=== PATIENT | female | born 1990 | race Caucasian/White ===

== ENCOUNTER → 2017-07-16 00:45 | Observation (INO) ==
[2017-07-15 23:01] VITALS: BP 125/90
[2017-07-15 23:52] LABS: Amphetamine Screen,Urine Negative ng/mL (Cutoff=1000); Barbiturate Screen,Urine Negative ng/mL (Cutoff=200); Benzodiazepines Screen,Urine Negative ng/mL (Cutoff=200); Cannabinoid Screen,Urine Negative ng/mL (Cutoff = 50); Cocaine Screen,Urine Negative ng/mL (Cutoff= 300); Opiate Screen,Urine Negative ng/mL (Cutoff=300); Phencyclidine Screen,Urine Negative ng/mL (Cutoff=25)
--- NOTE | 2017-07-16 00:27 | Discharge Summary ---
Date of Encounter: 07/16/17 Time of Encounter: 00:29 - Discharge Diagnosis (1) 38 weeks gestation of Priority: Primary Status: Acute Comments: admit for observation rule out labor (2) Uterine contractions Priority: Secondary Status: Acute Comments: No cervical change false labor - Discharge Medications Home Medications: Phenazopyridine HCl [Pyridium] 200 mg PO TID #6 tab 03/10/16 [Rx] Sulfamethoxazole/Trimeth DS [Bactrim DS] 1 each PO BID #14 tablet 03/10/16 [Rx] Ibuprofen [Motrin] 600 mg PO Q8HR PRN #20 tab 03/12/16 [Rx] Penicillin VK 500 mg PO QID #40 tablet 03/12/16 [Rx] Allergies/Adverse Reactions: 3 Allergy/AdvReac Type Severity Reaction Status Date / Time No Known Allergies Allergy Verified 03/10/16 18:36 Data Procedures and tests throughout hospitalization: Laboratory Tests 07/15/17 23:28 Urine Opiates Screen Negative Ur Barbiturates Screen Negative Ur Phencyclidine Scrn Negative Ur Amphetamines Screen Negative U Benzodiazepines Scrn Negative Urine Cocaine Screen Negative U Marijuana (THC) Screen Negative Labs on day of discharge: Labs from last 24 hours 07/15/17 23:28 Urine Opiates Screen Negative Ur Barbiturates Screen Negative Ur Phencyclidine Scrn Negative Ur Amphetamines Screen Negative U Benzodiazepines Scrn Negative Urine Cocaine Screen Negative U Marijuana (THC) Screen Negative Date of admission: 07/15/17 22:41 Discharging clinician: Leighann Beach Anticipated date of discharge: 07/16/17 - Patient Status Disposition: Home, Self-Care Condition: Good Functional capacity at discharge: independent ambulation - Discharge Instructions Follow Up With: Madison Yin DO [Partnered Physician] - - Diet and Activity Activity: increase activity as tolerated Diet: regular diet Hospital Course FIELD SALES SPECIALIST Hospital course: Patient is 26 y/o at 38 weeks gestation presents to labor and delivery with complaints of contractions for the past 3 hours that were 5-7 min apart. Patient denies LOF or VB. Patient reports +FM. Patient is scheduled for repeat c /s on 07/18/2017 Time Attestation: Total time spent providing and/or coordinating discharge services: Time Spent: Less than 30 minutes Exam - Constitutional Vitals: Temp Pulse Resp BP 97.6 F 110 16 125/90 07/15/17 23:00 07/15/17 23:00 07/15/17 23:00 07/15/17 23:00 General appearance IM: A&O X 3, pleasant, answers questions appropriately - Neurological Exam Neurological exam: alert, oriented X3 - Other Additional findings: FHR 140 bpm moderate variability. SVE Closed/thick - VTE Reasons for not Prescribing Prophylaxis: Treatment not Indicated - Low risk for VTE
== END | disposition home or self-care (01) ==
LOC: 1NENULAB
PROVIDERS: ADMIT Obstetrics & Gynecology; ATTEND Obstetrics & Gynecology

== ENCOUNTER 2017-07-18 07:45 | Inpatient (IN) ==
[2017-07-18] MEDS ORDERED: Lidocaine -MPF 1% 2 ML VIAL ONE (10:28)
[2017-07-18] MEDS ORDERED: Ringers Solution, Lactated 1,000 ML ONE ×3 (10:29→12:16)
[2017-07-18] MEDS ORDERED: Ringers Solution, Lactated 1,000 ML IVC ONE (10:29)
[2017-07-18] MEDS ORDERED: CeFAZolin Premix DUPLEX 2,000 MG/50 ML BAG IVPB ONE (10:29)
[2017-07-18] MEDS ORDERED: Ringers Solution, Lactated 1,000 ML IVC SCH (10:30)
[2017-07-18] MEDS ORDERED: *HR* Morphine Sulfate/PF 5 MG/10 ML AMPUL ONE (10:34)
[2017-07-18] MEDS ORDERED: *HR* FentaNYL (PF) 100 MCG/2 ML VIAL ONE (10:35)
[2017-07-18] MEDS ORDERED: *HR* Phenylephrine 10 MG/ML VIAL ONE (10:35)
[2017-07-18] MEDS ORDERED: EPHEDrine 50 MG/ML VIAL ONE (10:35)
[2017-07-18] MEDS ORDERED: Ondansetron 4 MG/2 ML VIAL ONE (10:37)
[2017-07-18] MEDS ORDERED: *HR* Oxytocin 10 UNIT/ML VIAL IM ONE (10:37)
[2017-07-18] MEDS ORDERED: Naloxone 0.4 MG/ML INJ IVP PRN (10:53)
[2017-07-18] MEDS ORDERED: Metoclopramide 10 MG/2 ML VIAL IVP PRN ×2 (10:53→15:53)
[2017-07-18] MEDS ORDERED: Famotidine 20 MG/2 ML VIAL IVP PRN (10:53)
[2017-07-18 11:04] LABS: Basophils # 0.1 K/mcL (0.0-0.2); Basophils % 0.6 %; Eosinophils # 0.1 K/mcL (0.0-0.6); Eosinophils % 1.1 %; Hematocrit 33.6 % (35.3-44.9); Hemoglobin 11.2 g/dL (11.5-15.4); Immature Granulocytes % 1.1 % (0-4); Lymphocytes # 1.6 K/mcL (0.6-4.6); Lymphocytes % 19.9 %; Mean Corpuscular HGB Conc 33.3 g/dL (31.6-35.5); Mean Corpuscular Hemoglobin 28.1 pg (28.0-33.3); Mean Corpuscular Volume 84.4 fL (83.0-100.0); Mean Platelet Volume 9.9 fL (9.4-12.4); Monocytes # 0.8 K/mcL (0.0-1.3); Monocytes % 9.5 %; Neutrophils # 5.6 K/mcL (1.6-8.9); Platelet Count 227 K/mcL (140-400); Red Blood Count 3.98 M/mcL (3.82-4.97); Red Cell Distribution Width 14.1 % (11.5-14.5); Segmented Neutrophils % 67.8 %
[2017-07-18 11:11] LABS: Amphetamine Screen,Urine Negative ng/mL (Cutoff=1000); Barbiturate Screen,Urine Negative ng/mL (Cutoff=200); Benzodiazepines Screen,Urine Negative ng/mL (Cutoff=200); Cannabinoid Screen,Urine Negative ng/mL (Cutoff = 50); Cocaine Screen,Urine Negative ng/mL (Cutoff= 300); Opiate Screen,Urine Negative ng/mL (Cutoff=300); Phencyclidine Screen,Urine Negative ng/mL (Cutoff=25)
--- NOTE | 2017-07-18 11:12 | Anesthesia Evaluation PreOp ---
Date of Encounter: 07/18/17 Time of Encounter: 11:10 - Past History Planned Operation: Repeat C/S Cardiac History: Denies any Significant Hx Pulmonary History: Denies Any Significant HX SUPPLIER RELATIONSHIP DIRECTOR History: Denies Any Significant HX Other Medical History: Denies Any Significant HX Anesthesia History: No Prior Anesthetic Complications, Past Anesthesia (T/A, C/S ) : Yes Alcohol Use: occasionally Drug use: none Medications and Allergies 3 Allergy/AdvReac Type Severity Reaction Status Date / Time No Known Allergies Allergy Verified 03/10/16 18:36 - Meds/Allergy Pre-op Review Medications Reviewed: Yes Allergies Reviewed: Yes Beta Blockers on Current Med List: No Anesthesia Results - Labs 07/18/17 10:50 Anesthesia Exam Height: 5'2" Weight: 87kg NPO (# of Hours): 8 Pain Scale: 0 Pain Scale Used: Numeric (1 - 10) - HEENT Pupil (Motor): Pupils equal Mallampati: II Teeth: Normal Oral Opening: Greater than 3 - SUPPLIER RELATIONSHIP DIRECTOR LOC: Oriented SUPPLIER RELATIONSHIP DIRECTOR Motor: Normal RUE, Normal LUE, Normal RLE, Normal LLE, Normal Face SUPPLIER RELATIONSHIP DIRECTOR Sensory: Normal: RUE, LUE, RLE, LLE, Face - Cardiac Rhythm: Regular Murmur: None JVD: No Carotid Bruit: No - Pulmonary Breath Sounds: bilateral Clear Respiratory Effort: Symmetrical Anesthesia Assess/Plan ASA Score: 2 Modified [place] Scale for Level of Consciousness: Cooperative, oriented, and tranquil Anesthetic Plan: Regional Autologous Blood: Yes Monitoring Plan: Standard Monitors Recovery Plan: PACU
[2017-07-18 11:18] LABS: BUN/Creatinine Ratio 18 (6-26); Blood Urea Nitrogen 10 mg/dL (7-20); Calcium 9.1 mg/dL (8.6-10.8); Carbon Dioxide 21 mEq/L (19-29); Chloride 108 mEq/L (98-109); Glucose 70 mg/dL (70-99); Osmolality,Calculated 281 (280-300); Potassium 4.1 mEq/L (3.5-4.5); Sodium 137 mEq/L (136-145); eGFR For African Americans > 60 (> 60); eGFR For Non-African Americans > 60 (> 60)
--- NOTE | 2017-07-18 11:25 | History & Physical Report ---
Date of Encounter: 07/18/17 Time of Encounter: 11:24 24 Hour HP Update - Instructions Instructions: If the History and Physical is less than 30 days old and was completed prior to A.M. admission and or procedure and has NOT been updated on calendar day of procedure please complete this update prior to performing procedure. - Update Patient reports changes in Medical Condition: No Changes in examination, assessment, or condition: No Changes in Medication: No Preop tests/diagnostics Reviewed: Yes Surgery Remains Indicated: Yes Consent for Planned Operative Procedure(s) Verified: Yes - Pre-Operative Checklist Preoperative Checklist Indicated: Yes Prophylactic Antibiotic Ordered: Yes Home Medications Include Beta Renata: No Is VTE Prophylaxis Indicated?: Yes
[2017-07-18] MEDS ORDERED: *HR* HYDROmorphone (PF) 1 MG/ML SYRINGE IVP PRN ×2 (12:20→15:11)
[2017-07-18] MEDS ORDERED: Ondansetron 4 MG/2 ML VIAL IVP ONE (12:20)
--- NOTE | 2017-07-18 13:28 | OB/GYN Procedure Note ---
Section - Date of procedure: 07/18/17 Preop diagnosis: desires repeat Post-op diagnosis: same Procedure: repeat low transverse Surgeon: Madison Yin [id number] Operator: Ruy Meza Anesthesia Type: Spinal section complications: none Disposition: PACU Specimens: Placenta, Cord blood - Infant (s) A Delivery Date: 07/18/17 Delivery Time: 12:29 Presentation: vertex Position: ROBBIN Route of delivery: other Gender: Female Viability: Viable Pounds: 7 Ounces: 11 Gram Weight: 3500 kg at 1 minute: 9 at 5 minutes: 9 Specimens collected: cord blood Placenta: complete extraction Cord: nuchal cord, 3 umbilical vessels, nuchal reduced - Narrative Narrative: Patient was taken to the operating room and placed in supine position with left uterine displacement following the administration of spinal anesthetic. Skin was then prepped and draped in usual sterile fashion, and a timeout procedure was performed. A Pfannenstiel incision was performed through the previous surgical scar, and extended down to the fascial layer until the abdominal cavity was entered. There was an adhesive band from the surface of the uterus to the anterior abdominal wall that was taken down with the bovie. A low transverse uterine incision was performed and extended bilaterally with bandage scissors. The membranes were then ruptured with clear fluid present. A viable female was delivered from a vertex presentation with scores of 9 and 9 at 1 and 5 minutes respectively and the weighed 7 pounds and 11 ounces. The oral cavity was gently suctioned with bulb suction, the cord was clamped and cut, and the was handed to the nursery team. A sample of cord blood was obtained and the placenta was manually removed. The uterine cavity was wiped clean with wet lap sponge. The uterine incision was closed in a layered fashion with 0 Vicryl suture in a running locking fashion. A piece of Interceed was then placed over the incision site. Good hemostasis was noted.The Paracolic gutters were then gently wiped clean with wet lap sponge. Inspection was then performed with good hemostasis still noted. The fascial layer was closed with 0 PDS Stratafix suture in a running nonlocking fashion. The subcutaneous layer was irrigated with sterile water and then closed with 4- 0 Vicryl suture in a running nonlocking fashion, and continuing to close the skin in a running subcuticular fashion. A piece of Dermabond mesh was then applied over the incision site. Patient tolerated procedure well, all sponge needle and instrument counts reported as correct. Estimated blood loss was 500 mL. The urine in the Cerda catheter was clear and yellow, and she was taken to recovery room in stable condition.
[2017-07-18] MEDS ORDERED: *HR* Morphine 2 MG/ML SYRINGE IVP PRN (15:11)
--- NOTE | 2017-07-18 15:11 | Anesthesia Evaluation Post Op ---
Date of Encounter: 07/18/17 Time of Encounter: 15:10 - Lungs Lungs: Clear Ascult./Percussion - Airway Airway: Non-obstructed - Cardiovascular Regular Rate, Baseline Rhythm - Mental Status Mental Status: Alert & Oriented, Answers Appropriately - Pain Pain Scale: 4 Pain Scale used: Numeric (1 - 10) - Nausea Vomiting Nausea Vomiting: Not Present - Hydration Hydration: Ice chips, Cerda catheter - Discharge PostOp Status: Transfer Patient to floor
[2017-07-18] MEDS ORDERED: Ondansetron 4 MG/2 ML VIAL IVP PRN (15:53)
[2017-07-18] MEDS ORDERED: Simethicone 80 MG TAB.CHEW PO PRN (15:53)
[2017-07-18] MEDS ORDERED: Oxytocin 20 units/ LR 1000 mL 20 UNIT/1,000 ML BAG IVC SCH (15:53)
[2017-07-18] MEDS ORDERED: Rho Immune Globulin 1,500 UNIT SYRINGE IM ONE (15:53)
[2017-07-18] MEDS ORDERED: *HR* HYDROmorphone (PF) 1 MG/ML SYRINGE IVP ONE (16:04)
[2017-07-18] MEDS: *HR* OxyCODONE/APAP 5/325 TABLET PO PRN (19:37)
[2017-07-19] MEDS: *HR* OxyCODONE/APAP 5/325 TABLET PO PRN ×4 (00:51→20:20)
[2017-07-19] MEDS: Ibuprofen 600 MG TABLET PO PRN ×3 (00:51→20:21)
[2017-07-19 07:08] LABS: Basophils % 0.3 %; Eosinophils # 0.1 K/mcL (0.0-0.6); Eosinophils % 0.7 %; Hematocrit 23.6 % (35.3-44.9); Immature Granulocytes % 0.7 % (0-4); Lymphocytes # 1.5 K/mcL (0.6-4.6); Lymphocytes % 16.8 %; Mean Corpuscular HGB Conc 32.6 g/dL (31.6-35.5); Mean Corpuscular Volume 85.8 fL (83.0-100.0); Mean Platelet Volume 9.9 fL (9.4-12.4); Monocytes # 0.8 K/mcL (0.0-1.3); Monocytes % 8.7 %; Neutrophils # 6.6 K/mcL (1.6-8.9); Platelet Count 157 K/mcL (140-400); Red Blood Count 2.75 M/mcL (3.82-4.97); Red Cell Distribution Width 14.4 % (11.5-14.5); Segmented Neutrophils % 72.8 %
[2017-07-19 07:24] LABS: Hemoglobin 7.7 g/dL (11.5-15.4)
--- NOTE | 2017-07-19 09:39 | OB/GYN Progress Note ---
Date of Encounter: 07/19/17 Time of Encounter: 09:34 - Assessment and Plan (1) 39 weeks gestation of Current Visit: Yes Status: Acute Patient received care with Dr. Yin (2) Delivery by elective section Current Visit: Yes Status: Acute (3) Anemia Current Visit: Yes Status: Acute Hb 7.7 from 11.2 - patient is doing well clinically without symptoms of anemia Blood loss recorded as 500ml during surgery Will continue to monitor patient and recheck CBC in the morning Continue Iron supplementation Qualifiers: Anemia type: other cause Other causes of anemia: other cause, not classified Qualified Code(s): D64.89 - Other specified anemias (4) Status post repeat low transverse section Current Visit: Yes Status: Acute Patient meeting milestones Subjective - Subjective Principal diagnosis: 38 weeks gestation s/p section POD#1 Interval history: Pt is resting comfortably in bed. Reports she has a headache and pain near her incision site, but her pain is responding well to the medications. She is ambulating, voiding well, tolerating PO intake. No flatus yet. Her abdomen is appropriately tender. She denies fevers, chills, or light-headedness. Patient reports: appetite normal, voiding normally, pain well controlled, ambulating normally, other (The patient reports minimal bleeding vaginally, no lightheadedness or dizziness when ambulating) : doing well Objective - Vital Signs Latest vital signs: Vital Signs Temp Pulse Resp BP Pulse Ox 07/19/17 08:24 98.1 F 100 20 100/63 97 07/19/17 05:15 97.9 F 104 16 117/72 96 07/19/17 00:45 98.1 F 103 14 99/69 97 07/18/17 18:45 97.5 F L 114 14 109/72 95 07/18/17 17:45 98.2 F 115 14 109/74 96 07/18/17 16:45 98 F 97 16 121/77 98 07/18/17 16:15 97.8 F 99 16 115/74 97 07/18/17 15:45 98 F 88 16 116/77 98 Intake and Output 07/18/17 07/19/17 07/19/17 23:59 07:59 15:59 Intake Total 300 / 300 360 / 360 Output Total 1040 / 1040 300 / 300 Balance -740 / -740 60 / 60 Intake: Oral 300 / 300 360 / 360 Output: Urine 300 / 300 Catheter 1040 / 1040 Other: Meal Breakfast Percent of Meal Consumed 100% Weight 81.556 kg Patient Weight 07/19/17 23:59 Weight 81.556 kg - Exam Lungs: bilateral: normal Chest: Normal S1, Normal S2 Extremities: Present: normal. Absent: edema Abdomen: Present: normal appearance, soft, tenderness (appropriate) Incision: Present: dry, dressed Uterus: Present: firm Fundal Height: 1 (finger below umbilicus) - Labs Labs: Laboratory Results - last 24 hr 07/18/17 07/18/17 07/18/17 10:50 10:50 10:50 WBC 8.2 RBC 3.98 Hgb 11.2 L Hct 33.6 L MCV 84.4 MCH 28.1 MCHC 33.3 RDW 14.1 Plt Count 227 MPV 9.9 Immature Gran % 1.1 Seg Neutrophils % 67.8 Lymphocytes % 19.9 Monocytes % 9.5 Eosinophils % 1.1 Basophils % 0.6 Neutrophils # 5.6 Lymphocytes # 1.6 Monocytes # 0.8 Eosinophils # 0.1 Basophils # 0.1 Sodium 137 Potassium 4.1 Chloride 108 Carbon Dioxide 21 BUN 10 Creatinine 0.56 L Est GFR ( Amer) > 60 Est GFR (Non-Af Amer) > 60 BUN/Creatinine Ratio 18 Glucose 70 Calculated Osmolality 281 Calcium 9.1 Urine Opiates Screen Negative Ur Barbiturates Screen Negative Ur Phencyclidine Scrn Negative Ur Amphetamines Screen Negative U Benzodiazepines Scrn Negative Urine Cocaine Screen Negative U Marijuana (THC) Screen Negative Baby's Blood Type Mother's Blood Type Rhogam Indicated 07/18/17 07/19/17 14:10 06:35 WBC 9.0 RBC 2.75 L Hgb 7.7 L D Hct 23.6 L MCV 85.8 MCH 28.0 MCHC 32.6 RDW 14.4 Plt Count 157 MPV 9.9 Immature Gran % 0.7 Seg Neutrophils % 72.8 Lymphocytes % 16.8 Monocytes % 8.7 Eosinophils % 0.7 Basophils % 0.3 Neutrophils # 6.6 Lymphocytes # 1.5 Monocytes # 0.8 Eosinophils # 0.1 Basophils # 0.0 Sodium Potassium Chloride Carbon Dioxide BUN Creatinine Est GFR ( Amer) Est GFR (Non-Af Amer) BUN/Creatinine Ratio Glucose Calculated Osmolality Calcium Urine Opiates Screen Ur Barbiturates Screen Ur Phencyclidine Scrn Ur Amphetamines Screen U Benzodiazepines Scrn Urine Cocaine Screen U Marijuana (THC) Screen Baby's Blood Type O RH NEGATIVE Mother's Blood Type O RH NEGATIVE Rhogam Indicated NO
[2017-07-19] MEDS: Prenatal Vit/FA 1 EACH TABLET PO SCH (09:52)
[2017-07-20] MEDS: Ibuprofen 600 MG TABLET PO PRN (03:13)
[2017-07-20] MEDS: *HR* OxyCODONE/APAP 5/325 TABLET PO PRN ×2 (03:14→09:19)
[2017-07-20 06:30] LABS: Hematocrit 22.6 % (35.3-44.9); Hemoglobin 7.3 g/dL (11.5-15.4); Mean Corpuscular HGB Conc 32.3 g/dL (31.6-35.5); Mean Corpuscular Hemoglobin 28.2 pg (28.0-33.3); Mean Corpuscular Volume 87.3 fL (83.0-100.0); Mean Platelet Volume 9.9 fL (9.4-12.4); Platelet Count 188 K/mcL (140-400); Red Blood Count 2.59 M/mcL (3.82-4.97); Red Cell Distribution Width 14.6 % (11.5-14.5)
--- NOTE | 2017-07-20 08:46 | Discharge Summary ---
Date of Encounter: 07/20/17 Time of Encounter: 08:44 - Discharge Diagnosis (1) Status post repeat low transverse section Priority: Primary Status: Acute Comments: patient doing very well, ambulating without difficulty, tolerating PO, good UO, pain is under control, ok for discharge - Discharge Medications Allergies/Adverse Reactions: 3 Allergy/AdvReac Type Severity Reaction Status Date / Time No Known Allergies Allergy Verified 03/10/16 18:36 Data Procedures and tests throughout hospitalization: Laboratory Tests 07/18/17 07/18/17 07/18/17 10:50 10:50 10:50 WBC 8.2 RBC 3.98 Hgb 11.2 L Hct 33.6 L MCV 84.4 MCH 28.1 MCHC 33.3 RDW 14.1 Plt Count 227 MPV 9.9 Immature Gran % 1.1 Seg Neutrophils % 67.8 Lymphocytes % 19.9 Monocytes % 9.5 Eosinophils % 1.1 Basophils % 0.6 Neutrophils # 5.6 Lymphocytes # 1.6 Monocytes # 0.8 Eosinophils # 0.1 Basophils # 0.1 Sodium 137 Potassium 4.1 Chloride 108 Carbon Dioxide 21 BUN 10 Creatinine 0.56 L Est GFR ( Amer) > 60 Est GFR (Non-Af Amer) > 60 BUN/Creatinine Ratio 18 Glucose 70 Calculated Osmolality 281 Calcium 9.1 Urine Opiates Screen Negative Ur Barbiturates Screen Negative Ur Phencyclidine Scrn Negative Ur Amphetamines Screen Negative U Benzodiazepines Scrn Negative Urine Cocaine Screen Negative U Marijuana (THC) Screen Negative Baby's Blood Type Mother's Blood Type Rhogam Indicated 07/18/17 07/19/17 07/20/17 14:10 06:35 06:15 WBC 9.0 9.9 RBC 2.75 L 2.59 L Hgb 7.7 L D 7.3 L Hct 23.6 L 22.6 L MCV 85.8 87.3 MCH 28.0 28.2 MCHC 32.6 32.3 RDW 14.4 14.6 H Plt Count 157 188 MPV 9.9 9.9 Immature Gran % 0.7 Seg Neutrophils % 72.8 Lymphocytes % 16.8 Monocytes % 8.7 Eosinophils % 0.7 Basophils % 0.3 Neutrophils # 6.6 Lymphocytes # 1.5 Monocytes # 0.8 Eosinophils # 0.1 Basophils # 0.0 Sodium Potassium Chloride Carbon Dioxide BUN Creatinine Est GFR ( Amer) Est GFR (Non-Af Amer) BUN/Creatinine Ratio Glucose Calculated Osmolality Calcium Urine Opiates Screen Ur Barbiturates Screen Ur Phencyclidine Scrn Ur Amphetamines Screen U Benzodiazepines Scrn Urine Cocaine Screen U Marijuana (THC) Screen Baby's Blood Type O RH NEGATIVE Mother's Blood Type O RH NEGATIVE Rhogam Indicated NO Labs on day of discharge: Labs from last 24 hours 07/20/17 06:15 WBC 9.9 RBC 2.59 L Hgb 7.3 L Hct 22.6 L MCV 87.3 MCH 28.2 MCHC 32.3 RDW 14.6 H Plt Count 188 MPV 9.9 Date of admission: 07/18/17 10:04 Primary care physician: PCP NONE - Patient Status Disposition: Home, Self-Care Condition: Good Functional capacity at discharge: independent ambulation Overall status at discharge: patient is progressing back to baseline - Discharge Instructions Follow Up With: NONE,PCP [Primary Care Provider] - Hospital Course [employer] Time Attestation: Total time spent providing and/or coordinating discharge services: Exam - Constitutional Vitals: Temp Pulse Resp BP Pulse Ox 98.2 F 108 18 107/74 97 07/19/17 20:20 07/19/17 20:20 07/19/17 20:20 07/19/17 20:20 07/19/17 20:20 General appearance IM: A&O X 3 - Respiratory Respiratory exam: Present: CTAB - Cardiovascular Cardiovascular exam IM: Present: RRR - GI/Abdominal GI/Abdominal exam IM: normal bowel sounds Incision: normal - VTE Reasons for not Prescribing Prophylaxis: Treatment not Indicated - Low risk for VTE Documentation of Mechanical Device: Intermittent pneumatic compression device
[2017-07-20 09:14] VITALS: BP 119/84
[2017-07-20] MEDS: Prenatal Vit/FA 1 EACH TABLET PO SCH (09:19)
== END 2017-07-20 11:20 | disposition home or self-care (01) | DRG 540 ==
LOC: 1NENULAB 10:04 → 1NENUOBS 16:11